=== PATIENT | male | born 1985 ===

== ENCOUNTER 2022-02-22 21:03 | Emergency (ER) | payer SELFPAY ==
[~2022-02-22] VITALS: Ht 182.9 cm; Wt 99.8 kg
[2022-02-22 23:17] LABS: Basophils # (auto) 0 10 ^3/uL (0-0.2); Basophils % (auto) 0.4 % (0.0-2.0); Eosinophils # (auto) 0 10 ^3/uL (0-0.8); Eosinophils % (auto) 0.3 % (0.0-7.0); Hematocrit 40.9 % (41.0-53.0); Hemoglobin 14.4 g/dL (13.5-17.5); Lymphocytes % (auto) 7.7 % (10.0-50.0); Mean Corpuscular Hemoglobin 29.5 pg (28.0-32.0); Mean Corpuscular Hgb Conc. 35.3 g/dL (32.0-36.0); Mean Corpuscular Volume 83.6 fL (80.0-100.0); Monocytes # (auto) 0.6 10 ^3/uL (0-1.3); Monocytes % (auto) 4.4 % (0.0-12.0); Neutrophils % (auto) 87.2 % (37.0-80.0); Nucleated Red Blood Cells % 0.1 %; Red Blood Cells 4.89 10^6/uL (4.5-5.90); Red Cell Distribution Width 13.1 % (11.8-14.3); White Blood Cell 12.6 10^3/uL (4.4-10.8)
[2022-02-22 23:56] LABS: Albumin 3.8 g/dL (3.4-5.0); BUN/Creatinine Ratio 11.3; Calcium 9.2 mg/dL (8.5-10.1); Potassium 3.8 mmol/L (3.5-5.1)
[2022-02-22 23:59] LABS: Bilirubin, Total 0.5 mg/dL (0.2-1.0)
[2022-02-23 08:01] VITALS: BP 144/75
[2022-02-23] MEDS ORDERED: IBUP800T27 PO (08:03)
[2022-02-23] MEDS ORDERED: TAM04C PO (08:03)
== END 2022-02-23 08:09 | disposition home or self-care (01) ==
LOC: ER 21:03
DX: N20.1 Calculus of ureter (principal); K40.90 Unilateral inguinal hernia, without obstruction or gangrene, not specified as recurrent; F12.10 Cannabis abuse, uncomplicated
CPT/HCPCS: 36415; 74176; 80053; 83690; 85025; 93005